=== PATIENT | male | born 1980 | race Caucasian/White ===

== ENCOUNTER 2017-06-21 21:29 | Emergency (ER) | payer BC ==
--- NOTE | 2017-06-21 21:46 | PDOC ---
History of Present Illness - General Chief Complaint: Allergic Reaction Stated Complaint: RASH Time Seen by Provider: 06/21/17 21:46 History Source: Patient Exam Limitations: No Limitations - History of Present Illness Initial Comments: 06/21/17 22:24 Pt. is a 37 y/o male, no PMH who presents to the ED c/o rash. He states that his noticed the rash when he took off his shirt earlier this evening and was concerned it was an allergic reaction and presents for evaluation. Pt. is a construction administrative assistant and he states he wore the same shirt two days in a row. No new exposures. Endorses itching. Denies fevers, SOB, light headedness and throat swelling Past History - Travel Traveled outside of the country in the last 30 days: No Close contact w/someone who was outside of country & ill: No - Past Medical History Allergies/Adverse Reactions: Allergies Allergy/AdvReac Type Severity Reaction Status Date / Time No Known Allergies Allergy Verified 06/21/17 21:35 Home Medications: Ambulatory Orders Hydrocortisone 2.5% Topical Cr [Anusol-Hc -] 1 applic TP BID #1 tube 06/21/17 Other medical history: denies - Psycho/Social/Smoking Cessation Hx Suicidal Ideation: No Smoking History: Former smoker Have you smoked in the past 12 months: No Information on smoking cessation initiated: No Hx Alcohol Use: No Drug/Substance Use Hx: No Review of Systems - Review of Systems Able to Perform ROS?: Yes Is the patient limited Macedonian proficient: No Constitutional: No: Chills, Fever, Malaise, Weakness HEENTM: No: Throat Pain, Throat Swelling, Mouth Swelling Respiratory: No: Cough, Shortness of Breath, Wheezing Integumentary: Yes: Erythema (chest and back), Pruritus (chest and back), Rash ( chest and back) All Other Systems: Reviewed and Negative *Physical Exam - Vital Signs Last Vital Signs Temp Pulse Resp BP Pulse Ox 97.6 F 105 H 19 141/83 100 06/21/17 21:32 06/21/17 21:32 06/21/17 21:32 06/21/17 21:32 06/21/17 21:32 - Physical Exam General Appearance: Yes: Nourished, Appropriately Dressed. No: Apparent Distress Respiratory/Chest: positive: Lungs Clear, Normal Breath Sounds. negative: Respiratory Distress, Accessory Muscle Use Cardiovascular: positive: Regular Rhythm, Regular Rate, S1, S2 (presents). negative: JVD, Murmur Integumentary: positive: Dry, Warm, Rash (diffuse macular rash on the chest to the upper back and neck. minor pruritis. ) Medical Decision Making - Medical Decision Making 06/21/17 22:43 Pt. is a 37 y/o male with no PMH who presents with a macular rash for one day. Most likely a heat rash. No obvious hives. No difficulty breathing , lung sounds clear and no mouth swelling. Educated about good hygiene. Prescribed hydrocortisone cream and discharged home. Pt. agrees with discharge. All questions answered and all discharge instructions understood. Derm referral given. *DC/Admit/Observation/Transfer Diagnosis at time of Disposition: Rash and nonspecific skin eruption - Discharge Dispostion Disposition: HOME Condition at time of disposition: Good Admit: No - Prescriptions Prescriptions: Hydrocortisone 2.5% Topical Cr [Anusol-Hc -] 1 applic TP BID #1 tube - Referrals Referrals: Carey Martinez MD [Staff Physician] - - Patient Instructions Printed Discharge Instructions: DI for Rash Additional Instructions: You have a rash. It could possibly be a heat rash. Change your shirts after work and do not re-wear shirts. Take cool showers to help make sure the rash does not get worse. Avoid scented lotions and soaps. You were prescribed a cortisone cream. Do not use the cream on your eyes or eyelids. Apply a thin layer 2 times a day. Follow up with dermatology in one week if the rash does not get better. You were given a referral in this packet. Return to the ED if you have worsening rash, develop blisters, fevers, or have any changes in your symptoms.
[2017-06-21 21:49] VITALS: BP 141/83; PULSE 105; TEMP 97.6; BMI 34.0
== END 2017-06-21 22:33 | disposition home or self-care (01) ==
LOC: JER 21:29
DX: R21 Rash and other nonspecific skin eruption (principal); Z87.891 Personal history of nicotine dependence
CPT/HCPCS: 99281-25

== ENCOUNTER 2018-07-27 10:49 | Emergency (ER) | payer BC ==
[2018-07-27 10:55] VITALS: BMI 31.1
--- NOTE | 2018-07-27 11:15 | PDOC ---
Attending Attestation - Resident Resident Name: Ada Chen - HPI HPI: 07/27/18 11:47 Pt presents to the ED after laceration to the L thumb with a saw. 07/27/18 11:50 - Physicial Exam PE: 07/27/18 11:50 Large laceration at the base of the L thumb. Intact ROM, distal sensation and cap refill. - Medical Decision Making 07/27/18 11:51 Pt has 2 cm laceration approximately 1 cm above the PIP joint. Intact cap refill, distal sensation and ROM. Will give pain control and, given mechanism, will check xray to rule out fx. Will repair laceration if no fracture. 07/27/18 11:53
[2018-07-27] MEDS ORDERED: LIDOCAINE HCL 1%, 10 MG/ML (50 mL VIAL) SQ ONE (11:41)
[2018-07-27] MEDS ORDERED: DIPHTH,PERTUSS(ACELL),TET 0.5 ML DISP.SYRIN IM ONE (11:46)
[2018-07-27] MEDS ORDERED: LIDOCAINE HCL 2% (20ML MULTI-DOSE VIAL) NR ONE (11:48)
--- NOTE | 2018-07-27 14:30 | PDOC ---
History of Present Illness <Kathi Arrieta - Last Filed: 07/27/18 15:19> - History of Present Illness Initial Comments: 07/27/18 14:30 L thumb laceration with chainsaw. No hx of DM or HLD <Ada Chen - Last Filed: 07/27/18 15:38> - General Chief Complaint: Laceration Stated Complaint: LACERATION TO HAND,DIZZINESS Time Seen by Provider: 07/27/18 10:57 Past History <Kathi Arrieta - Last Filed: 07/27/18 15:19> - Suicide/Smoking/Psychosocial Hx Smoking History: Unknown if ever smoked Have you smoked in the past 12 months: No Hx Alcohol Use: No Drug/Substance Use Hx: No <Ada Chen - Last Filed: 07/27/18 15:38> - Past Medical History Allergies/Adverse Reactions: Allergies Allergy/AdvReac Type Severity Reaction Status Date / Time No Known Allergies Allergy Verified 07/27/18 10:53 Home Medications: Ambulatory Orders Cephalexin [Keflex] 500 mg PO BID #10 capsule 07/27/18 Ibuprofen [Motrin -] 600 mg PO TID #21 tablet 07/27/18 *Physical Exam - Vital Signs Last Vital Signs Temp Pulse Resp BP Pulse Ox 68 22 H 134/90 97 07/27/18 10:54 07/27/18 10:54 07/27/18 10:54 07/27/18 10:54 <Kathi Arrieta - Last Filed: 07/27/18 15:19> - Vital Signs Last Vital Signs Temp Pulse Resp BP Pulse Ox 68 22 H 134/90 97 07/27/18 10:54 07/27/18 10:54 07/27/18 10:54 07/27/18 10:54 <Ada Chen - Last Filed: 07/27/18 15:38> Procedures - Splinting Splint Location: Left: Finger Pre-Made Type: metal Splint Type: Yes: Thumb Spica Post-Proc Neuro Vasc Exam: normal - Laceration/Wound Repair Left Hand Wound Length: to 2.5 cm Wound Explored: clean Wound's Depth, Shape: superficial, into muscle, flap Irrigated w/ Saline: Yes Betadine Prep: No (chlorexidine) Anesthesia: 1% Lidocaine Amount of Anesthetic (ccs): 12 Wound Debrided: minimal Wound Repaired With: Sutures Suture Size/Type: 4:0, nylon Number of Sutures: 14 Layer Closure: No Deep Layer Suture Size/Type: 4:0, gut Number of Deep Layer Sutures: 2 Sterile Dressing Applied: Yes Splint Applied: Yes <Ada Chen - Last Filed: 07/27/18 15:38> ED Treatment Course - Medications Given in the ED: ED Medications Discontinued Medications Generic Name Dose Route Start Last Admin Trade Name Freq PRN Reason Stop Dose Admin Cephalexin HCl 500 mg 07/27/18 14:35 07/27/18 14:44 Keflex - PO 07/27/18 14:36 500 mg ONCE ONE Administration Diphtheria/Tetanus/Acell Pertussis 0.5 ml 07/27/18 11:46 07/27/18 12:18 Boostrix - IM 07/27/18 11:47 0.5 ml .ONCE ONE Administration Ibuprofen 800 mg 07/27/18 14:50 07/27/18 14:59 Motrin - PO 07/27/18 14:51 800 mg ONCE ONE Administration Lidocaine HCl 10 ml 07/27/18 11:41 07/27/18 11:57 Xylocaine 1% SQ 07/27/18 11:42 10 ml ONCE ONE Administration - Additional Consults Time Called: 14:52 (Left message, awaiting callback from [facility] for hand consult. Repaged at 15:18, spoke with call service. ) Consult/PCP: Jose Guerra <Kathi Arrieta - Last Filed: 07/27/18 15:19> - RADIOLOGY Radiology Studies Ordered: Category Date Time Status FINGER(S) RIGHT [RAD] Stat Radiology 07/27/18 11:39 Completed HAND- RIGHT [RAD] Stat Radiology 07/27/18 11:39 Completed - Medications Given in the ED: ED Medications Discontinued Medications Generic Name Dose Route Start Last Admin Trade Name Freq PRN Reason Stop Dose Admin Diphtheria/Tetanus/Acell Pertussis 0.5 ml 07/27/18 11:46 07/27/18 12:18 Boostrix - IM 07/27/18 11:47 0.5 ml .ONCE ONE Administration Lidocaine HCl 10 ml 07/27/18 11:41 07/27/18 11:57 Xylocaine 1% SQ 07/27/18 11:42 10 ml ONCE ONE Administration <Ada Chen - Last Filed: 07/27/18 15:38> *DC/Admit/Observation/Transfer <Kathi Arrieta - Last Filed: 07/27/18 15:19> - Discharge Dispostion Decision to Admit order: No <Ada Chen - Last Filed: 07/27/18 15:38> Diagnosis at time of Disposition: Laceration of thumb - Discharge Dispostion Disposition: HOME Condition at time of disposition: Stable - Prescriptions Prescriptions: Cephalexin [Keflex] 500 mg PO BID #10 capsule Ibuprofen [Motrin -] 600 mg PO TID #21 tablet - Referrals Referrals: Jose Guerra MD [Staff Physician] - - Patient Instructions Printed Discharge Instructions: DI for Laceration Repair Additional Instructions: You were seen in the ED for complaints of L thumb laceration. In the ED you were evaluated with imaging that did not show any fractures. A laceration repair was performed. There does not appear to be an acute need for immediate hospitalization. You are advised to follow up with your Primary Care Physician within 1 week. You were given a referral to Plastic Surgery and should follow up within 4 days. If you are unable to see Plastic Surgery within 1 week. Return to the ED for suture removal. You were given a prescription for antibiotics and pain medications. Please take medications as directed. Return to the ED immediately if you experience worsening pain in the L thumb, bleeding, numbness or tingling in the hand/thumb, change of color in the thumb or hand including changes to blue or black. Return to the ED if you experience muscle weakness, in the hand or wrist, fevers or discharge from the laceration site.
[2018-07-27] MEDS ORDERED: CEPHALEXIN MONOHYDRATE 500 MG CAPSULE (UD) PO ONE (14:35)
[2018-07-27] MEDS ORDERED: CEPHALEXIN MONOHYDRATE 500 MG CAPSULE (UD) ONE (14:43)
[2018-07-27] MEDS ORDERED: IBUPROFEN 400 MG TABLET (FP) PO ONE ×2 (14:50→14:59)
[2018-07-27 15:51] VITALS: BP 129/79; PULSE 72; TEMP 98.1
== END 2018-07-27 15:51 | disposition home or self-care (01) ==
LOC: JER 10:49
PROC: 3E0234Z Introduction of Serum, Toxoid and Vaccine into Muscle, Percutaneous Approach (ICD-10-PCS; principal; 2018-07-27)
PROC: 0JQK0ZZ Repair Left Hand Subcutaneous Tissue and Fascia, Open Approach (ICD-10-PCS; 2018-07-27)
PROC: 2W3HX1Z Immobilization of Left Thumb using Splint (ICD-10-PCS; 2018-07-27)
DX: S61.012A Laceration without foreign body of left thumb without damage to nail, initial encounter (principal); W27.0XXA Contact with workbench tool, initial encounter; Y93.89 Activity, other specified; Y92.89 Other specified places as the place of occurrence of the external cause; Y99.8 Other external cause status
CPT/HCPCS: 73130-TC-RT-FY; 73140-TC-RT-FY; 90715; 99283-25

== ENCOUNTER 2018-08-12 15:49 | Emergency (ER) | payer BC ==
[2018-08-12 16:13] VITALS: BMI 34.7
--- NOTE | 2018-08-12 17:32 | PDOC ---
Attending Attestation - Resident Resident Name: Alejandra Painting - ED Attending Attestation I have performed the following: I have examined & evaluated the patient, The case was reviewed & discussed with the resident, I agree w/resident's findings & plan, Exceptions are as noted - HPI HPI: 08/12/18 17:31 This 38-year-old male sustained a left thumb laceration from a circular saw on July 27. He came to this hospital and it was sutured. He was placed on by mouth antibiotics. Admission plan was for him to follow-up with his primary care doctor, but he was unable to get an appointment. Up until 2 days ago. He stated that the thumb was fine. He had no pain and was not swallowing. And then he noticed 2 days ago. The pain started in the thumb became swollen. The sutures are still in place 16 days after their placement - Physicial Exam PE: 08/12/18 17:32 wnwd 38 yo male p/w swelling on pain to his left thumb 16 days after sustaining a laceration from a Sawzail(reciprocating saw) head ncat neck supple lungs cta b/l cvs [id number] abd protuberant extremities - left thumb is swollen with decreased sensation on the lateral aspect,he has sutures in the lateral aspect ,pain out of proportion to exam , the the thenar eminence is tender, no streaking noted,no purulence seen,no erythema no cva pain neuro axox3,ambulatory - Medical Decision Making 08/12/18 19:57 pt has no fever his cbc is wnl all the sutures where successfully removed pt discharged home with instructions to return if her develops any redness at the site, any drainage or increasing pain
[2018-08-12] MEDS ORDERED: ceFAZolin 2 GRAM PREMIX BAG IVPB ONE (17:35)
--- NOTE | 2018-08-12 17:38 | PDOC ---
History of Present Illness - General Chief Complaint: Wound Stated Complaint: PAIN Time Seen by Provider: 08/12/18 17:14 - History of Present Illness Initial Comments: Katerin Martínez is an otherwise healthy 38yo man who presents with increased pain and swelling to his left thumb s/p laceration repair on 07/27/18. He reports that on the , he cut his thumb with a sawzall and presented to the ED at [facility]. At that time, the wound was sutured. His neurovascular exam was intact. He reports that his thumb was healing well until two days ago, at which point it began to be somewhat swollen and painful. Today, it was even worse. He can hardly move his thumb at all secondary to pain, and he feels that the anterior ( palmar) surface of his thumb is numb to touch. He has not noticed any significant redness or any drainage, but he does feel that his thumb is significantly swollen. He denies fevers, chills, or any systemic symptoms. He reports that he did not get the stitches removed earlier because he tried to call to make an appointment to follow up as directed and was not able to get an appointment up until now. Past History - Past Medical History Allergies/Adverse Reactions: Allergies Allergy/AdvReac Type Severity Reaction Status Date / Time No Known Allergies Allergy Verified 08/12/18 16:13 Home Medications: Ambulatory Orders NK [No Known Home Medication] 08/12/18 COPD: No - Suicide/Smoking/Psychosocial Hx Smoking History: Never smoked Have you smoked in the past 12 months: No Hx Alcohol Use: No Drug/Substance Use Hx: No Review of Systems - Review of Systems Comments:: General: No fevers, no chills, no weight or appetite change, no malaise HEENT: No changes in vision, no changes in hearing, no congestion, no sore throat CV: No chest pain, no palpitations, no LE edema Pulm: No SOB, no cough, no wheezing GI: No nausea or vomiting, no change in bowel habits, no melena : No frequency, no urgency, no dysuria Musc: See HPI Skin: No rash, no lesions, no erythema Endo: No excessive thirst, no heat/cold intolerance Heme: No unusual bruising or bleeding, no swollen glands Neuro: No syncope, no numbness/tingling, no focal weakness Vasc: No claudication Psych: No recent change in mood, no SI or HI *Physical Exam - Vital Signs Last Vital Signs Temp Pulse Resp BP Pulse Ox 98.4 F 93 H 18 127/95 97 08/12/18 16:09 08/12/18 16:09 08/12/18 16:09 08/12/18 16:09 08/12/18 16:09 - Physical Exam Comments: General: Comfortable, no acute distress HEENT: PERRL, EOMI, MMM, voice normal Cards: RRR Pulm: Comfortable on room air Ext: L hand - thumb exquisitely tender, visibly swollen. No erythema or drainage , laceration appears to be healing. Sutures in place, partially embedded. Vasc: Extremities WWP. Neuro: A&Ox3, CN grossly intact, normal speech, motor/sensory grossly intact and symmetric Psych: Mood appropriate to situation ED Treatment Course - LABORATORY CBC & Chemistry Diagram: 08/12/18 18:00 08/12/18 18:00 Medical Decision Making - Medical Decision Making 08/12/18 18:08 Katerin Martínez is an otherwise healthy 38yo, recently seen in the ED for L thumb laceration repair on 07/27, who presents with pain and swelling to his left thumb. - No erythema or drainage, but given level of pain, limited ROM, and swelling there is some concern for underling infection or abscess. - CBC, chemistry to evaluate for underlying infection - Empirically giving 2g ancef for possible infection - Xray left hand to evaluate for abscess, significant soft tissue infection - Sutures to be removed following xray - Will call hand surgeon for referral 08/12/18 18:40 - Xray reviewed. No abnormalities noted. - Will attempt to remove sutures at bedside. 08/12/18 19:01 - 14 sutures removed at bedside - Pain increased following suture removal. Ordering 4mg morphine, 30mg toradol for pain 08/12/18 19:10 - Patient endorsed to Dr Chen for remainder of care. Discussed with Dr Courtney. Alejandra Painting PGY1 *DC/Admit/Observation/Transfer Diagnosis at time of Disposition: Swelling of thumb, left - Referrals Referrals: Jacinto Genao MD [Staff Physician] - Jericho Rosen MD [Staff Physician] - - Patient Instructions - Post Discharge Activity
[2018-08-12] MEDS ORDERED: CEFAZOLIN 1 GM/D5W 2 GM/100 ML BAG ONE (17:55)
[2018-08-12 18:11] LABS: HEMATOCRIT 44.5 % (35.4-49); HEMOGLOBIN 15.1 GM/dL (11.7-16.9); MCH 27.9 pg (25.7-33.7); MCHC 33.9 g/dl (32.0-35.9); MEAN CELL VOLUME 82.5 fl (80-96); PLATELET COUNT 258 K/MM3 (134-434); RBC 5.39 M/mm3 (4.00-5.60); WHITE BLOOD COUNT 10.2 K/mm3 (4.0-10.0)
[2018-08-12 18:37] LABS: ALK PHOS 49 U/L (45-117); ANION GAP 9 MMOL/L (8-16); BILIRUBIN,TOTAL 0.4 mg/dL (0.2-1); BLOOD UREA NITROGEN 22 mg/dL (7-18); CALCIUM 8.9 mg/dL (8.5-10.1); CHLORIDE 107 mmol/L (98-107); CO2 25 mmol/L (21-32); CREATININE 0.9 mg/dL (0.55-1.3); GLUCOSE,RANDOM 95 mg/dL (74-106); SGPT/ALT 48 U/L (13-61); SODIUM 141 mmol/L (136-145); TOT PROT 7.6 g/dl (6.4-8.2)
[2018-08-12 18:38] LABS: POTASSIUM 4.3 mmol/L (3.5-5.1); SGOT/AST 26 U/L (15-37)
[2018-08-12] MEDS ORDERED: morphine CARPU-JECT 4 MG/1 ML DISP.SYRIN IVPUSH ONE (18:58)
[2018-08-12] MEDS ORDERED: KETOROLAC TROMETHAMINE 30 MG/1 ML VIAL IVPUSH ONE (19:00)
[2018-08-12] MEDS ORDERED: KETOROLAC TROMETHAMINE 30 MG/1 ML VIAL ONE (19:04)
[2018-08-12] MEDS ORDERED: morphine SULFATE 4 MG/ML VIAL ONE (19:04)
--- NOTE | 2018-08-12 19:27 | PDOC ---
*Physical Exam - Vital Signs Last Vital Signs Temp Pulse Resp BP Pulse Ox 98.4 F 93 H 18 127/95 97 08/12/18 16:09 08/12/18 16:09 08/12/18 16:09 08/12/18 16:09 08/12/18 16:09 ED Treatment Course - LABORATORY CBC & Chemistry Diagram: 08/12/18 18:00 08/12/18 18:00 - ADDITIONAL ORDERS Additional order review: Laboratory Results 08/12/18 18:00 Sodium 141 Potassium 4.3 Chloride 107 Carbon Dioxide 25 Anion Gap 9 BUN 22 H Creatinine 0.9 Creat Clearance w eGFR > 60 Random Glucose 95 Calcium 8.9 Total Bilirubin 0.4 AST 26 ALT 48 Alkaline Phosphatase 49 Total Protein 7.6 Albumin 4.0 08/12/18 18:00 RBC 5.39 MCV 82.5 MCHC 33.9 RDW 13.0 MPV 8.0 - RADIOLOGY Radiology Studies Ordered: Category Date Time Status HAND- LEFT [RAD] Stat Radiology 08/12/18 17:35 Taken - Medications Given in the ED: ED Medications Discontinued Medications Generic Name Dose Route Start Last Admin Trade Name Freq PRN Reason Stop Dose Admin Cefazolin Sodium/Dextrose 2 gm 08/12/18 17:35 08/12/18 18:06 Ancef 2 Gm Premixed Ivpb - IVPB 08/12/18 17:36 2 gm ONCE ONE Administration Ketorolac Tromethamine 30 mg 08/12/18 19:00 08/12/18 19:05 Toradol Injection - IVPUSH 08/12/18 19:01 30 mg ONCE ONE Administration Morphine Sulfate 4 mg 08/12/18 18:58 08/12/18 19:05 Morphine Injection - IVPUSH 08/12/18 18:59 4 mg ONCE ONE Administration Medical Decision Making - Medical Decision Making 08/12/18 19:20 Please see entire note signed earlier tonight. Continuation note started to enter discharge instructions. *DC/Admit/Observation/Transfer Diagnosis at time of Disposition: Swelling of thumb, left - Discharge Dispostion Disposition: HOME Condition at time of disposition: Stable Decision to Admit order: No - Referrals Referrals: Jacinto Genao MD [Staff Physician] - Jericho Rosen MD [Staff Physician] - - Patient Instructions Additional Instructions: Discharge Instructions: - You were seen in the ED with swelling of your left thumb - Your sutures, placed 2 weeks ago, were removed. You were given pain medication - Your blood tests and xray were normal. There is no sign of infection at this time You need to make an appointment to be seen within the next 2 days (48 hours). You may be seen in the ED for follow up. - You have also been referred to the resident clinic with Dr Genao to set up care with a primary physician - You have been referred to Dr Rosen, an orthopedic surgeon, to follow up for the care of your left hand - When you call, say that you need to make an emergency room follow up visit You need to return for urgent care if you notice - Increased redness around your thumb, especially if you see red streaking up your arm - Pus (thick, yellow/white) drainage from your thumb - If you have fevers to 101F or shivering - If your thumb becomes more swollen, numb, or more painful Home Care: - Use ibuprofen (Advil/Motrin) or acetaminophen (Tylenol) for pain. You may alternate between acetaminophen and ibuprofen every 4 hours if needed for pain control. - Keep your thumb elevated to help improve swelling - Consider using cold packs for pain and swelling. Apply cold packs for 15 minutes every 1-2 hours as needed - Keep the wound clean with soap and water. Then allow to dry open to air. - Post Discharge Activity
[2018-08-12 19:56] VITALS: BP 114/76; PULSE 78; TEMP 97.8
== END 2018-08-12 20:12 | disposition home or self-care (01) ==
LOC: JER 15:49 → JERFT 15:49 → JER 20:12
DX: Z48.817 Encounter for surgical aftercare following surgery on the skin and subcutaneous tissue (principal); M79.89 Other specified soft tissue disorders; Z48.02 Encounter for removal of sutures
CPT/HCPCS: 36415; 73130-TC-LR-FY; 80053; 85027; 99285-25

== ENCOUNTER 2023-07-31 22:19 | Emergency (ER) | payer OTHER ==
[2023-07-31 22:25] VITALS: RESP 18; TEMP 98.4; BMI 31.8
[2023-07-31] MEDS ORDERED: ACETAMINOPHEN 1000 MG/100 ML BAG IVPB ONE (22:47)
[2023-07-31] MEDS ORDERED: SODIUM CHLORIDE 0.9% 500 ML INFUS.BAG IV ONE (22:47)
[2023-07-31] MEDS ORDERED: METOCLOPRAMIDE HCL INJECTION 10 MG/2 ML VIAL IVPB ONE (22:47)
[2023-07-31] MEDS ORDERED: METOCLOPRAMIDE HCL INJECTION 10 MG/2 ML VIAL ONE (23:05)
[2023-07-31] MEDS ORDERED: ACETAMINOPHEN INJECTION 100 ML IVPB ONE (23:06)
[2023-07-31 23:10] LABS: BASO % 0.9 % (0-2.0); EOS % 1.7 % (0-4.5); MCH 28.4 pg (25.7-33.7); MCHC 34.9 g/dl (32.0-35.9); MEAN CELL VOLUME 81.3 fl (80-96); MEAN PLT VOLUME 7.4 fl (7.5-11.1); MONO % 7.8 % (3.8-10.2); NEUT % 53.6 % (42.8-82.8); PLATELET COUNT 267 10^3/uL (134-434); RBC 5.29 M/mm3 (4.00-5.60); RDW 13.1 % (11.9-15.9); WHITE BLOOD COUNT 8.5 K/mm3 (4.0-10.0)
[2023-07-31 23:49] LABS: POTASSIUM 4.1 mmol/L (3.5-5.1)
[2023-07-31 23:51] LABS: CALCIUM 9.3 mg/dL (8.5-10.1)
[2023-07-31 23:52] LABS: BLOOD UREA NITROGEN 19.7 mg/dL (7-18); MAGNESIUM 1.6 mg/dL (1.8-2.4)
[2023-07-31 23:55] LABS: CREATININE 0.8 mg/dL (0.55-1.3)
[2023-07-31 23:57] LABS: BILIRUBIN,TOTAL 0.2 mg/dL (0.2-1); TOT PROT 7.6 g/dl (6.4-8.2)
[2023-08-01 01:31] VITALS: BP 118/77; PULSE 74
== END 2023-08-01 01:43 | disposition home or self-care (01) ==
LOC: JER 22:19
PROC: 3E033NZ Introduction of Analgesics, Hypnotics, Sedatives into Peripheral Vein, Percutaneous Approach (ICD-10-PCS; principal; 2023-07-31)
PROC: 3E033GC Introduction of Other Therapeutic Substance into Peripheral Vein, Percutaneous Approach (ICD-10-PCS; 2023-07-31)
DX: R51.9 Headache, unspecified (principal)
CPT/HCPCS: 36415; 70450-TC; 80053; 83735; 85025; 99284-25

== ENCOUNTER 2024-04-14 09:44 | Emergency (ER) | payer OTHER ==
[2024-04-14 09:53] VITALS: BMI 35.2
[2024-04-14] MEDS ORDERED: ACETAMINOPHEN INJECTION 100 ML IVPB ONE (10:38)
[2024-04-14] MEDS: ACETAMINOPHEN 1000 MG/100 ML BAG IVPB ONE (11:02)
[2024-04-14 11:15] LABS: BASO % 0.7 % (0-2.0); EOS % 1.6 % (0-4.5); HEMATOCRIT 39.8 % (35.4-49); MCH 28.9 pg (25.7-33.7); MCHC 35.2 g/dl (32.0-35.9); MEAN CELL VOLUME 82.1 fl (80-96); MEAN PLT VOLUME 7.7 fl (7.5-11.1); MONO % 7.9 % (3.8-10.2); NEUT % 58.8 % (42.8-82.8); PLATELET COUNT 213 10^3/uL (134-434); RBC 4.85 M/mm3 (4.00-5.60); RDW 13.3 % (11.9-15.9); WHITE BLOOD COUNT 6.2 K/mm3 (4.0-10.0)
[2024-04-14 11:29] LABS: POTASSIUM 4.3 mmol/L (3.5-5.1)
[2024-04-14 11:31] LABS: CALCIUM 9.4 mg/dL (8.5-10.1)
[2024-04-14 11:31] LABS: URINE APPEARANCE CLEAR; URINE BILIRUBIN NEGATIVE (NEGATIVE); URINE COLOR YELLOW; URINE GLUCOSE (UA) NEGATIVE (NEGATIVE); URINE KETONE NEGATIVE (NEGATIVE); URINE LEUK ESTERASE NEGATIVE (NEGATIVE); URINE NITRITE NEGATIVE (NEGATIVE); URINE PROTEIN NEGATIVE (NEGATIVE); URINE UROBILINOGEN 0.2 mg/dL (0.2-1.0)
[2024-04-14 11:32] LABS: ALBUMIN 3.6 g/dl (3.4-5.0); BLOOD UREA NITROGEN 14.1 mg/dL (7-18)
[2024-04-14 11:33] LABS: MAGNESIUM 1.7 mg/dL (1.8-2.4)
[2024-04-14 11:35] LABS: CREATININE 0.8 mg/dL (0.55-1.3)
[2024-04-14 11:36] LABS: BILIRUBIN,TOTAL 0.3 mg/dL (0.2-1)
[2024-04-14 11:37] LABS: TOT PROT 6.7 g/dl (6.4-8.2)
[2024-04-14] MEDS ORDERED: MAGNESIUM 1GM/D5W - 1 GM/100 ML IVPB IVPB ONE (12:39)
[2024-04-14] MEDS: MAGNESIUM 1GM/D5W - 1 GM/100 ML IVPB IVPB ONE (13:32)
[2024-04-14] MEDS: HALOPERIDOL LACTATE 5 MG/ML IM ONE (14:41)
[2024-04-14 14:49] VITALS: BP 142/99; PULSE 80; RESP 16; TEMP 97.7
== END 2024-04-14 14:50 | disposition home or self-care (01) ==
LOC: JER 09:44
PROC: 3E033GC Introduction of Other Therapeutic Substance into Peripheral Vein, Percutaneous Approach (ICD-10-PCS; principal; 2024-04-14)
PROC: 3E033NZ Introduction of Analgesics, Hypnotics, Sedatives into Peripheral Vein, Percutaneous Approach (ICD-10-PCS; 2024-04-14)
DX: R10.31 Right lower quadrant pain (principal)
CPT/HCPCS: 36415; 74177-TC; 80053; 81003; 83605; 83690; 83735; 85025; 87086; 99285-25; J0131

== ENCOUNTER 2024-05-28 18:02 | Emergency (ER) | payer SELFPAY ==
[2024-05-28 18:37] VITALS: BP 138/98; PULSE 92; RESP 18; TEMP 97.9; BMI 35.2
[2024-05-28] MEDS ORDERED: KETOROLAC TROMETHAMINE 30 MG/1 ML VIAL ONE (19:36)
[2024-05-28] MEDS: KETOROLAC TROMETHAMINE 30 MG/1 ML VIAL IM ONE (19:41)
== END 2024-05-28 19:54 | disposition home or self-care (01) ==
LOC: JERFT 18:02
PROC: 3E0233Z Introduction of Anti-inflammatory into Muscle, Percutaneous Approach (ICD-10-PCS; principal; 2024-05-28)
DX: S69.91XA Unspecified injury of right wrist, hand and finger(s), initial encounter (principal); W22.8XXA Striking against or struck by other objects, initial encounter
CPT/HCPCS: 73110-TC-RT-FY; 73130-TC-RT-FY; 99284-25